=== PATIENT | female | born 1975 | race Two or more races ===

== ENCOUNTER → 2020-10-03 | Outpatient (CLI) | payer OTHER ==
[2020-10-03 14:56] LABS: BASOPHILS % (AUTO) 0.2 % (0.0-2.0); EOSINOPHILS % (AUTO) 4.5 % (1.0-6.0); HEMATOCRIT 40.5 % (36-46); HEMOGLOBIN 13.2 g/dL (12.0-16.0); LYMPHOCYTES # (AUTO) 3.5 K/uL (1.0-4.8); LYMPHOCYTES % (AUTO) 35.4 % (22.0-44.0); MEAN CORPUSCULAR HEMOGLOBIN 27.5 pg (26.0-34.0); MEAN CORPUSCULAR HGB CONC 32.7 G/dL (31.0-37.0); MEAN CORPUSCULAR VOLUME 84 fL (80-100); MONOCYTES # (AUTO) 0.5 K/uL (0.1-1.0); MONOCYTES % (AUTO) 5.1 % (2.0-9.0); NEUTROPHILS # (AUTO) 5.5 K/uL (1.8-7.7); NEUTROPHILS % (AUTO) 54.8 % (40.0-70.0); PLATELET COUNT (AUTO) 273 K/uL (150-450); RED BLOOD CELL COUNT(AUTO) 4.81 MIL/uL (4.00-5.20); RED CELL DISTRIBUTION WIDTH 14.9 % (11.5-14.5)
[2020-10-03 15:18] LABS: ALBUMIN 3.3 g/dL (3.4-5.0); CALCIUM, TOTAL 8.4 mg/dL (8.8-10.5); CREATININE 1.41 mg/dL (0.60-1.30); PHOSPHORUS 3.4 mg/dL (2.5-4.9); POTASSIUM 4.3 mmol/L (3.5-5.1)
[2020-10-03 15:26] LABS: HEMOGLOBIN A1C 5.6 % (3.8-5.6)
[2020-10-03 23:13] LABS: APPEARANCE,URINE CLOUDY (CLEAR); BILIRUBIN,URINE NEGATIVE (NEGATIVE); GLUCOSE, URINE (UA) NEGATIVE (NEGATIVE); KETONES,URINE NEGATIVE (NEGATIVE); LEUKOCYTE ESTERASE ,URINE NEGATIVE (NEGATIVE); NITRATE,URINE NEGATIVE (NEGATIVE); OCCULT BLOOD,URINE LARGE (NEGATIVE); PH,URINE 5.5 (5.0-8.0); PROTEIN,URINE SEE CONFIRM (NEGATIVE); UROBILINOGEN,URINE 0.2 mg/dL (<=1.0)
[2020-10-03 23:29] LABS: BACTERIA,URINE Rare /HPF (None Seen); SQUAMOUS EPITHELIAL CELL,UR Moderate /LPF (None Seen); SULFOSALICYLIC ACID,URINE 2+ (Negative)
[2020-10-03 23:48] LABS: PROTEIN,URINE RANDOM 206 mg/dL (0-11.9)
[2020-10-04 12:17] LABS: ALPHA-1 (IFE & PEP) 0.3 g/dL (0.0-0.4); BETA (IFE & ELP) 1.1 g/dL (0.7-1.3); GAMMA GLOBULINS (IFE & ELP) 1.2 g/dL (0.4-1.8); IGM (IMMUNOFIXATION) 155 mg/dL (26-217)
== END | disposition home or self-care (01) ==
LOC: LABMN 12:07
PROVIDERS: ATTEND Hospitalist
DX: N18.32 Chronic kidney disease, stage 3b (principal); R31.29 Other microscopic hematuria; R80.1 Persistent proteinuria, unspecified
CPT/HCPCS: 82043; 82570; 82784; 83036; 83520; 83970; 84155; 84156; 84165; 84166; 86038; 86060; 86063; 86160; 86256; 86334; 86335; 86803; 87340; 99001

== ENCOUNTER → 2022-03-02 | Outpatient (CLI) | payer OTHER ==
[2022-03-02 12:09] LABS: BASOPHILS % (AUTO) 0.6 % (0.0-2.0); EOSINOPHILS % (AUTO) 3.9 % (1.0-6.0); HEMATOCRIT 36.3 % (36-46); HEMOGLOBIN 12.3 g/dL (12.0-16.0); LYMPHOCYTES # (AUTO) 2.8 K/uL (1.0-4.8); LYMPHOCYTES % (AUTO) 35.7 % (22.0-44.0); MEAN CORPUSCULAR HEMOGLOBIN 27.6 pg (26.0-34.0); MEAN CORPUSCULAR VOLUME 81 fL (80-100); MONOCYTES # (AUTO) 0.4 K/uL (0.1-1.0); MONOCYTES % (AUTO) 5.7 % (2.0-9.0); NEUTROPHILS # (AUTO) 4.2 K/uL (1.8-7.7); NEUTROPHILS % (AUTO) 54.1 % (40.0-70.0); PLATELET COUNT (AUTO) 263 K/uL (150-450); RED BLOOD CELL COUNT(AUTO) 4.47 MIL/uL (4.00-5.20); RED CELL DISTRIBUTION WIDTH 14.4 % (11.5-14.5)
[2022-03-02 12:21] LABS: PROTHROMBIN TIME 10.4 SEC (9.4-11.6)
[2022-03-02 12:25] LABS: ALBUMIN 3.5 g/dL (3.4-5.0); BILIRUBIN,TOTAL 0.6 mg/dL (0.1-1.0); CALCIUM, TOTAL 9.1 mg/dL (8.8-10.5); CREATININE 1.73 mg/dL (0.60-1.30); POTASSIUM 5.2 mmol/L (3.5-5.1); TOTAL PROTEIN, SERUM 7.6 g/dL (6.4-8.2)
== END | disposition home or self-care (01) ==
LOC: LABMN 11:38
PROVIDERS: ATTEND Hospitalist
DX: N18.32 Chronic kidney disease, stage 3b (principal); R80.1 Persistent proteinuria, unspecified
CPT/HCPCS: 80053; 83970; 85025; 85610; 85730

== ENCOUNTER → 2022-03-09 | Outpatient (CLI) | payer OTHER ==
[2022-03-09 12:13] LABS: APPEARANCE,URINE CLEAR (CLEAR); BILIRUBIN,URINE NEGATIVE (NEGATIVE); GLUCOSE, URINE (UA) NEGATIVE (NEGATIVE); KETONES,URINE NEGATIVE (NEGATIVE); LEUKOCYTE ESTERASE ,URINE NEGATIVE (NEGATIVE); NITRATE,URINE NEGATIVE (NEGATIVE); OCCULT BLOOD,URINE SMALL (NEGATIVE); PROTEIN,URINE TRACE mg/dL (NEGATIVE); SPECIFIC GRAVITIY, URINE 1.013 (1.003-1.030); UROBILINOGEN,URINE <=1.0 mg/dL (<=1.0)
[2022-03-09 12:15] LABS: PROTEIN,URINE RANDOM 26 mg/dL (0-11.9)
[2022-03-09 13:04] LABS: BACTERIA,URINE None Seen /HPF (None Seen); RBC,URINE 0-2 /HPF (0-2); SQUAMOUS EPITHELIAL CELL,UR Few /LPF (None Seen); WBC,URINE None Seen /HPF (0-5)
== END | disposition home or self-care (01) ==
LOC: LABMN 11:35
PROVIDERS: ATTEND Hospitalist
DX: R80.1 Persistent proteinuria, unspecified (principal)
CPT/HCPCS: 81001; 82043; 82570; 84156; Q9967; 84155-TC

== ENCOUNTER → 2022-03-26 | Outpatient (CLI) | payer OTHER ==
[2022-03-26 11:50] LABS: BASOPHILS % (AUTO) 0.4 % (0.0-2.0); EOSINOPHILS % (AUTO) 4.9 % (1.0-6.0); HEMATOCRIT 37.1 % (36-46); HEMOGLOBIN 12.5 g/dL (12.0-16.0); LYMPHOCYTES % (AUTO) 39.8 % (22.0-44.0); MEAN CORPUSCULAR HEMOGLOBIN 27.6 pg (26.0-34.0); MEAN CORPUSCULAR HGB CONC 33.6 G/dL (31.0-37.0); MEAN CORPUSCULAR VOLUME 82 fL (80-100); MONOCYTES # (AUTO) 0.4 K/uL (0.1-1.0); MONOCYTES % (AUTO) 5.5 % (2.0-9.0); NEUTROPHILS # (AUTO) 3.8 K/uL (1.8-7.7); NEUTROPHILS % (AUTO) 49.4 % (40.0-70.0); PLATELET COUNT (AUTO) 261 K/uL (150-450); RED BLOOD CELL COUNT(AUTO) 4.51 MIL/uL (4.00-5.20); RED CELL DISTRIBUTION WIDTH 14.6 % (11.5-14.5)
[2022-03-26 11:51] LABS: APPEARANCE,URINE CLEAR (CLEAR); BILIRUBIN,URINE NEGATIVE (NEGATIVE); GLUCOSE, URINE (UA) NEGATIVE (NEGATIVE); KETONES,URINE NEGATIVE (NEGATIVE); LEUKOCYTE ESTERASE ,URINE NEGATIVE (NEGATIVE); NITRATE,URINE NEGATIVE (NEGATIVE); OCCULT BLOOD,URINE SMALL (NEGATIVE); PH,URINE 5.5 (5.0-8.0); PROTEIN,URINE 30-70 mg/dL (NEGATIVE); SPECIFIC GRAVITIY, URINE 1.012 (1.003-1.030); UROBILINOGEN,URINE <=1.0 mg/dL (<=1.0)
[2022-03-26 11:54] LABS: CREATININE,URINE RANDOM 63.9 mg/dL (30.0-125.0); PROTEIN,URINE RANDOM 60 mg/dL (0-11.9)
[2022-03-26 12:01] LABS: ALBUMIN 3.6 g/dL (3.4-5.0); CALCIUM, TOTAL 9.4 mg/dL (8.8-10.5); CHOL/HDL RATIO 5.3 (3.9-5.7); CREATININE 1.34 mg/dL (0.60-1.30); PHOSPHORUS 4.3 mg/dL (2.5-4.9); POTASSIUM 4.5 mmol/L (3.5-5.1)
[2022-03-26 12:02] LABS: BACTERIA,URINE None Seen /HPF (None Seen); SQUAMOUS EPITHELIAL CELL,UR Few /LPF (None Seen); WBC,URINE None Seen /HPF (0-5)
== END | disposition home or self-care (01) ==
LOC: LABMN 11:05
PROVIDERS: ATTEND Hospitalist
DX: I12.9 Hypertensive chronic kidney disease with stage 1 through stage 4 chronic kidney disease, or unspecified chronic kidney disease (principal); N18.32 Chronic kidney disease, stage 3b; R80.1 Persistent proteinuria, unspecified
CPT/HCPCS: 80061; 80069; 81001; 82043; 82570; 83970; 84156; 85025; 86160; 86256